=== PATIENT | female | born 1940 | race Caucasian/White ===

== ENCOUNTER 2017-10-26 10:30 | Emergency (ER) | payer MEDICARE, OTHER ==
[~2017-10-26] VITALS: Ht 162.6 cm; Wt 108.0 kg
[~2017-10-26 10:30] MED LIST: ALBU.083IS IH; ALBU90OI INH; ALPR.25 PO; ALPR1 PO; AMLO10 PO; ATOR40TA PO; Antivert25 MG PO; C-PAP; CEPH500 PO; CITA20 PO; CLON1 PO; FURO40 PO; HYDACE5 PO; HYDHCL25 PO; IBUP800 PO; LISI20 PO; LORA1 PO; MECL25 PO; METF500; METPRE4DP PO; Norco 5-325 Ta1 EACH PO; POTCHL10ER PO; Prednisone20 MG PO; Robaxin-750750 MG PO; SPACER IH; TIOT18 IH
[2017-10-26] MEDS ORDERED: ALBU2.5V5 NEB (13:25)
== END 2017-10-26 14:28 | disposition home or self-care (01) ==
LOC: ER 10:30
DX: J44.9 Chronic obstructive pulmonary disease, unspecified (principal); I10 Essential (primary) hypertension; K21.9 Gastro-esophageal reflux disease without esophagitis; F41.9 Anxiety disorder, unspecified; F17.210 Nicotine dependence, cigarettes, uncomplicated; Z88.8 Allergy status to other drugs, medicaments and biological substances; Z88.2 Allergy status to sulfonamides; Z79.899 Other long term (current) drug therapy
CPT/HCPCS: 99283

== ENCOUNTER 2017-11-27 06:39 | Emergency (ER) | payer MEDICARE, OTHER ==
[~2017-11-27] VITALS: Ht 162.6 cm; Wt 104.3 kg
[~2017-11-27 06:39] MED LIST changes: +ALBU2.5V5 NEB
[2017-11-27] MEDS ORDERED: ASPI81CH (07:06)
[2017-11-27] MEDS ORDERED: ESCI5 (07:06)
[2017-11-27] MEDS ORDERED: MAGOXI400 (07:06)
[2017-11-27] MEDS ORDERED: Norco 5-325 Ta1 EACH PO (07:11)
[2017-11-27] MEDS ORDERED: METPRE4DP PO (07:11)
== END 2017-11-27 07:34 | disposition home or self-care (01) ==
LOC: ER 06:39
DX: R07.89 Other chest pain (principal); M54.41 Lumbago with sciatica, right side; E66.01 Morbid (severe) obesity due to excess calories; J44.9 Chronic obstructive pulmonary disease, unspecified; E11.9 Type 2 diabetes mellitus without complications; I10 Essential (primary) hypertension; K21.9 Gastro-esophageal reflux disease without esophagitis; F41.9 Anxiety disorder, unspecified; F17.210 Nicotine dependence, cigarettes, uncomplicated; Z88.8 Allergy status to other drugs, medicaments and biological substances; Z88.2 Allergy status to sulfonamides; Z79.899 Other long term (current) drug therapy; Z68.39 Body mass index [BMI] 39.0-39.9, adult
CPT/HCPCS: 96372; 99284; J1100; J2550; J3010

== ENCOUNTER 2018-12-05 13:34 | Day surgery (SDC) | payer MEDICARE, OTHER ==
[~2018-12-05] VITALS: Ht 162.6 cm; Wt 106.3 kg
[~2018-12-05 13:34] MED LIST changes: +ALBU90OI61 INH; +ASCO500 PO; +ASPI325EC PO; +ASPI81CH; +Amlodipine Bes2.5 MG PO; +Calcitriol0.25 MCG PO; +EDARBI40 MG PO; +ESCI20 PO; +ESCI5; +GABA100 PO; +MAGNESIUM250 MG PO; +MAGOXI400; +METF500C PO; +NIAC500 PO; +OMEG1CAP30 PO; +TOCO1000 PO; +VITAMIN B-121000 MCG PO; +Vitamin D2000 UNIT PO
[2018-12-05] MEDS ORDERED: CYCL10 (13:56)
== END 2018-12-05 14:16 | disposition home or self-care (01) ==
LOC: ORSCSDS 13:34
PROVIDERS: Anesthesiology
PROC: 3E0R33Z Introduction of Anti-inflammatory into Spinal Canal, Percutaneous Approach (ICD-10-PCS; principal; 2018-12-05 14:45)
DX: M51.16 Intervertebral disc disorders with radiculopathy, lumbar region (principal); M48.061 Spinal stenosis, lumbar region without neurogenic claudication; I10 Essential (primary) hypertension; E11.9 Type 2 diabetes mellitus without complications; E78.00 Pure hypercholesterolemia, unspecified; F41.8 Other specified anxiety disorders; E66.01 Morbid (severe) obesity due to excess calories; Z68.41 Body mass index [BMI] 40.0-44.9, adult
CPT/HCPCS: J1040

== ENCOUNTER 2018-12-30 19:55 | Inpatient (IN) | payer MEDICARE, OTHER ==
[~2018-12-30] VITALS: Ht 162.6 cm; Wt 104.0 kg
[~2018-12-30 19:55] MED LIST changes: +ALPR.5 PO; -ASPI325EC PO; +Aspirin EC81 MG PO; +CYAN500 PO; +CYCL10; -OMEG1CAP30 PO; -VITAMIN B-121000 MCG PO
[2018-12-30 20:44] LABS: BASOPHILS ABSOLUTE AUTO 0.06 K/mm3 (0.00-0.23); BASOPHILS PERCENT AUTO 1 % (0-2); EOSINOPHILS ABSOLUTE AUTO 0.11 K/mm3 (0.00-0.68); EOSINOPHILS PERCENT AUTO 1 % (0-6); Hematocrit 47.6 % (33.0-51.0); Hemoglobin 15.8 g/dL (11.5-16.0); IMMATURE GRAN ABSOLUTE AUTO 0.02 K/mm3 (0.00-0.10); IMMATURE GRAN PERCENT AUTO 0 % (0-1); LYMPHOCYTES ABSOLUTE AUTO 1.99 K/mm3 (0.84-5.20); LYMPHOCYTES PERCENT AUTO 18 % (21-46); MONOCYTES ABSOLUTE AUTO 0.94 K/mm3 (0.16-1.47); MONOCYTES PERCENT AUTO 9 % (4-13); Mean Corpuscular HGB 31.2 pg (26.0-34.0); Mean Corpuscular HGB Conc 33.2 g/dL (31.5-36.5); Mean Corpuscular Volume 94 fL (80-100); Mean Platelet Volume 10.4 fL (9.1-12.4); NEUTROPHILS ABSOLUTE AUTO 7.76 K/mm3 (1.96-9.15); NEUTROPHILS PERCENT AUTO 71 % (41-73); Platelet Count 364 K/mm3 (150-400); RDW Coefficient Variation 13.3 % (11.7-14.2); RDW Standard Deviation 46.4 fL (35.1-46.3); Red Blood Cell Count 5.06 M/mm3 (3.80-5.20); White Blood Cell Count 10.88 K/mm3 (4.00-11.30)
[2018-12-30 21:02] LABS: Albumin, Blood 3.6 g/dL (3.4-5.0); Albumin/Globulin Ratio 0.9 (0.8-1.8); Bilirubin, Total 0.4 mg/dL (0.1-1.0); Bun/Creatinine Ratio 14.3 (12.0-20.0); Calcium, Blood 10.2 mg/dL (8.5-10.1); Creatinine, Blood 1.19 mg/dL (0.40-1.00); Globulin, Blood 3.9 g/dL (2.2-4.0); Potassium, Blood 3.7 mmol/L (3.5-5.5); Total Protein, Blood 7.5 g/dL (6.4-8.2)
[2018-12-30 21:13] LABS: Troponin I 0.351 ng/mL (0.000-0.040)
[2018-12-30 21:15] LABS: Thyroid Stimulating Hormone 1.89 uIU/mL (0.360-4.800)
[2018-12-30] MEDS ORDERED: MEGARED OMEGA-1 EAC1 PO (22:11)
--- NOTE | 2018-12-31 00:54 | NUR ---
DPOA WILIAMSAMI GARCIA IS DPOA, WILL BRING PAPERWORK FROM HOME. PATIENT CANNOT MAKE DECISIONS OR REMEMBER ANY INSTRUCTIONS, TEACHINGS OR CONVERSATIONS PER PATIENT AND PATIENTS GRNADSON. ALL INFORMATION ON PATIENT FROM MD NEEDS TO BE GIVEN TO THE GRANDSON, PLEASE CALL HIM WITH ANY INFORMATION OR EDUCATION FOR PATIENT. PATIENTS DAUGHTER CANNOT HAVE ANY PERSONAL INFORMATION, ONLY GENERAL INFORMATION PER DPOA AND PATIENT, DUE TO DAUGHTERS MENTAL INSTABILITY
[2018-12-31 02:14] LABS: Source, Urine Clean Catch
[2018-12-31 02:16] LABS: Bilirubin, Urine Neg (Neg); Blood, Urine Neg (Neg); Glucose Qualitative, Urine Neg (Neg); Ketones, Urine Neg (Neg); Leukocyte Esterase, Urine Neg (Neg); Nitrite, Urine Neg (Neg); Protein, Urine Neg (Neg); Urobilinogen, Urine NORM (Normal)
[2018-12-31 02:21] LABS: Appearance, Urine Clear (Clear); Color, Urine Yellow (P-Yellow)
[2018-12-31 05:20] LABS: Hematocrit 45.7 % (33.0-51.0); Hemoglobin 15.3 g/dL (11.5-16.0); Mean Corpuscular HGB 31.4 pg (26.0-34.0); Mean Corpuscular HGB Conc 33.5 g/dL (31.5-36.5); Mean Corpuscular Volume 94 fL (80-100); Mean Platelet Volume 10.6 fL (9.1-12.4); Platelet Count 300 K/mm3 (150-400); RDW Coefficient Variation 13.2 % (11.7-14.2); RDW Standard Deviation 45.5 fL (35.1-46.3); Red Blood Cell Count 4.87 M/mm3 (3.80-5.20); White Blood Cell Count 10.51 K/mm3 (4.00-11.30)
--- NOTE | 2018-12-31 05:31 | NUR ---
SHIFT SUMMARY PATIENT WAS ADMITTED IN PCU AT 2307 VIA GURNEY, PATIENT TRANSFER FROM GURNEY TO BED, ALERT AND ORIENTED X 3, CAN FOLLOW DIRECTION BUT FORGET INSTRUCTION AT TIMES. AFIB AT 115, DENIES PAIN AT THIS TIME. BED LOCK, IN LOW POSITION, AND CALL LIGHT WITHIN REACH. SEE [facility] FOR FULL ADMISSION ASSESSMENT.
[2018-12-31 05:34] LABS: International Normalized Ratio 1.04
[2018-12-31 05:55] LABS: Alanine Aminotransfer (ALT/SGP 25 U/L (12-78); Albumin, Blood 3.3 g/dL (3.4-5.0); Albumin/Globulin Ratio 0.9 (0.8-1.8); Alk Phos 94 U/L (50-136); Anion Gap 9 mmol/L (6-16); Aspartate Aminotrans (AST/SGOT 13 U/L (12-37); Bilirubin, Total 0.5 mg/dL (0.1-1.0); Blood Urea Nitrogen 17 mg/dL (8-24); Bun/Creatinine Ratio 18.4 (12.0-20.0); CO2, Blood 25 mmol/L (21-32); Chloride, Blood 104 mmol/L (98-108); Creatinine, Blood 0.93 mg/dL (0.40-1.00); Globulin, Blood 3.5 g/dL (2.2-4.0); Glomerular Filtration Rate >60 (60-); Glucose, Blood 126 mg/dL (70-99); Potassium, Blood 3.7 mmol/L (3.5-5.5); Sodium, Blood 138 mmol/L (136-145); Total Protein, Blood 6.8 g/dL (6.4-8.2)
[2018-12-31 05:57] LABS: Magnesium, Blood 1.5 mg/dL (1.6-2.4); Troponin I 0.404 ng/mL (0.000-0.040)
--- NOTE | 2018-12-31 11:48 | NUR ---
echocardiogram completed
--- NOTE | 2018-12-31 13:00 | NUR ---
CHANGES TO MEDICATIONS AND PLAN OF CARE Family memeberPavan, brought in paperwork stating he is DPOA. He stated discontent that lasix had been added to the pt's medication regimen and that he had not been notified. Pavan also brought in an incomplete POLST for this pt. This RN was at pt's bedside when Dr Gonzalez rounded on the patient. Pt stated she understood the plan of care. She did not request for provider or this RN to call Pavan and give an update. This RN educated Pavan on DPOA meaning he is the decision maker when the patient cannot make her own decisions. On assessment, the patient is A&O x 3 but can be forgetful at times. This RN also educated that pt has autonomy to make her own decisions. Pavan stated he would like to be included in the patient's plan of care because the patient has difficulty understanding what is being discussed. Pavan's plan is to remain at the patient's bedside. Pt verbalizes approval of this plan. Family and patient educated on changes to medications until pt and family verbalized satisfaction.
[2018-12-31 13:22] LABS: Troponin I 0.45 ng/mL (0.000-0.040)
--- NOTE | 2018-12-31 18:17 | NUR ---
CARDIOLOGY CONSULT Dr Gonzalez ordered cardiology consult. This RN spoke to Dr Ribera to notify him of the consult. Provider stated he would not accept the consult at this time, but Dr Gonzalez may reconsult the provider personally. This RN provided update to Dr Gonzalez. Pt has remained on 5 mg/hr of cardizem. HR is averaging between 95 and 105.
--- NOTE | 2018-12-31 18:21 | NUR ---
SHIFT SUMMARY: ASSUMED CARE OF PT AT 0700, RECIEVED REPORT FROM PREM MONTELONGO. UPON ENTERING ROOM PT WAS A/O TO SELF, FAMILY AND SURROUNDINGS. PT CAN BECOME CONFUSED AT TIMES ACCORDING TO POA. WHEN ASSESSING PT, SHE DENIED ANY CHEST PAIN, DYSPNEA, DIZZINESS OR LIGHTHEADEDNESS. DURING THE DAY PT'S HR HAS BEEN IN THE 110'S, HOWEVER, AFTER ADDING ADDITIONAL BP MEDS, HR HAS SHOULD IMPROVMENT WITH HR IN THE 90'S. PT HAS CONTINOUSLY T/O SHIFT DENIED CHEST PAIN OR PALPATATIONS. PT HAS BEEN ENCOURAGED TO USE CALL LIGHT AND ASK FOR ASSISTANCE TO THE RESTROOM DUE TO HR ELEVATING WITH AMBULATION. PT IS STEADY ON HER FEET AND HAS BEEN CALLING APPRORIATLY. PT POA WAS CONCERNED ABOUT THE PT RECIVING LASIX AND WAS WORRIED IT WOULD PUT THE PT INTO RENAL FAILURE. POA WAS EDUCATED BY ANGELINA MONTELONGO, AND SHE ADRESSED HIS CONCERNS AND QUESTIONS. POA WAS ENCOURAGED TO STAY WITH THE PATIENT DURING THE STAY BECAUSE HE WANTS TO BE INFORMED OF ANY CHANGES, INCLUDING MEDICATIONS.PIPE BOWL PAINT TRIMMER HAS BEEN CONSULTED, AND FAMILY HAS REQUESTED TO BE PRESENT. BED IS AT LOWEST LEVEL, CALL LIGHT WITHIN REACH. WILL CONTINUE TO MONITOR PT UNTIL REPORT IS GIVEN TO ONCOMING SHIFT.
--- NOTE | 2018-12-31 19:44 | NUR ---
BEDSIDE REPORT Lexiscan ordered for patient. During bedside report, pt had a large number of visitors in her room. This RN told the patient that there was an update in her plan of care and asked the patient if it was okay for this RN to provide the update while all the visitors were in the room. The patient stated "Of course that's okay!". This RN updated pt, Pavan, and visitors regarding cardiology consultation and lexiscan to be done tomorrow.
--- NOTE | 2018-12-31 22:26 | NUR ---
Assumed care of pt at approx 1900. Pt currently infusing diltiazem at 5ml/hr. Rate verified with JAYDA Pandya. New bag infusing at approx 2200 and rate verified with JAYDA Gonzales. Pt tolerating with VSS. Pt in A-fib with rate between 90-110's. Pt in no apparent sign of distress. Awake and alert. Oriented but forgetful. Pt states she gets confused easily. GrandsonPavan, is pt. POA and is at bedside. Pavan states that he will remain at bedside through night and would like to be aware of any and all changes to plan of care and/or medication changes. Pt ambulates with SBA to FWW to bathroom, though steady on her feet without walker. Educated pt and family on fall risk prevention and asked to have her use walker when ambulating. Pt makes needs known, calls appropriately, and call light is currently within reach. Pt resting comfortably at this time. Will continue to monitor and update. See shift assessment for detailed assessment
[2019-01-01 04:10] LABS: BASOPHILS ABSOLUTE AUTO 0.05 K/mm3 (0.00-0.23); BASOPHILS PERCENT AUTO 1 % (0-2); EOSINOPHILS ABSOLUTE AUTO 0.17 K/mm3 (0.00-0.68); EOSINOPHILS PERCENT AUTO 2 % (0-6); Hematocrit 43.2 % (33.0-51.0); Hemoglobin 14.5 g/dL (11.5-16.0); IMMATURE GRAN ABSOLUTE AUTO 0.02 K/mm3 (0.00-0.10); IMMATURE GRAN PERCENT AUTO 0 % (0-1); LYMPHOCYTES PERCENT AUTO 30 % (21-46); MONOCYTES ABSOLUTE AUTO 1.01 K/mm3 (0.16-1.47); MONOCYTES PERCENT AUTO 12 % (4-13); Mean Corpuscular HGB 30.8 pg (26.0-34.0); Mean Corpuscular HGB Conc 33.6 g/dL (31.5-36.5); Mean Corpuscular Volume 92 fL (80-100); Mean Platelet Volume 10.4 fL (9.1-12.4); NEUTROPHILS ABSOLUTE AUTO 4.68 K/mm3 (1.96-9.15); NEUTROPHILS PERCENT AUTO 56 % (41-73); Platelet Count 319 K/mm3 (150-400); RDW Coefficient Variation 13.3 % (11.7-14.2); RDW Standard Deviation 45.1 fL (35.1-46.3); Red Blood Cell Count 4.71 M/mm3 (3.80-5.20); White Blood Cell Count 8.43 K/mm3 (4.00-11.30)
[2019-01-01 04:23] LABS: International Normalized Ratio 1.26; Prothrombin Time Results 13.1 Sec (9.7-11.5)
[2019-01-01 04:28] LABS: Bun/Creatinine Ratio 21.1 (12.0-20.0); Calcium, Blood 10.3 mg/dL (8.5-10.1); Magnesium, Blood 1.5 mg/dL (1.6-2.4); Potassium, Blood 3.7 mmol/L (3.5-5.5)
--- NOTE | 2019-01-01 05:31 | NUR ---
Shift Summary No acute changes this shift. VSS. No apparent sign of distress. Pt tolerating 5mL/hr Diltiazem with HR trending in 90-100's. Pt with Pavan sutton who is DPOA, at bedside. Pavan is involved in the care of pt. Pavan brought to this RN's attention concern regarding Xanex order. Pavan states that he told "many doctors and nurses who work here" that pt. needs to take home medication, Xanex, two times a day. The order is currently in the eMAR as PRN. This RN did not initially give Xanex because pt appeared calm and did not request the PRN Xanex. At approx 0300, pt states "I don't think you gave me my xanex". This RN explained how PRN medications work. Pavan expressed frustration to this RN regarding medication not given to pt. Xanex given per pt request at approx 0315 and pt has been resting comfortably since. This RN plans to pass along request to change Xanex from PRN medication to scheduled medication to day shift RN. Pt remains alert and oriented. Pt becomes forgetful and confused at times. Pt does make needs known and uses call light appropriately. Bed is currently in locked, lowest position. Will continue to monitor until report is given to day RN.
--- NOTE | 2019-01-01 18:39 | NUR ---
SHIFT SUMMARY: ASSUMED CARE OF PT AT 0700, RECEVIED REPORT FROM MANDY MONTELONGO. PT REMAINS IN A-FIB AND HAS COME OFF THE IV CARDIZEM INFUSION. PO BP MEDICATIONS HAVE BEEN EFFECTIVE AND PULSE HAS REMAINED IN THE RANGE OF 85-95. HOWEVER, PT'S PULSE INCREASED TO THE 150'S WHEN SHE AMBULATED TO THE RESTROOM. UPON ENTERING THE RESTROOM TO ASSIT PT, SHE WAS FOUND STRUGGLING TO PUT HER UNDERPANTS ON AND APPERED TO BE SOB. PT DENIED ANY CHEST PAIN OR PALPATAIONS DURING THIS EVENT AND T/O ENTIRE SHIFT. PT WAS EDUCATED TO ASK FOR ASSISTANCE WHEN USING RESTROOM AND ALSO IN WAYS TO CONSERVE ENERGY. PT STATED THAT SHE UNDERSTOOD. PT HAS BEEN PLACED MEDICAL STATUS AND ROOM ASSIGNMENT IS PENDING. WILL CONTINUE TO MONIOR UNTIL REPORT IS GIVEN TO NEXT SHIFT. CALL LIGHT IS WITHIN REACH.
--- NOTE | 2019-01-02 01:24 | NUR ---
Assumed care of pt at approx 1900. VSS. pt in no sign of distress, no complaints this eveing. Pt requesting Xanex and Xanex given per order. Pt alert and oriented, confused and forgetful at times, grandson at bedside. Pt's current mentation is consistant with baseline per grandson. HR maintaining between 85-95 per development technician, normotensive, normothermic. No comlaint of chest pain or chest pressure. No events on tele. Pt denies pain of any kind at this time. Pt completed resting portion of stress test on 01/01 and scheduled to complete second portion today, 01/02. See shift assessment for detailed assessment. Pt without complaints or concerns at this time. Report given to JAYDA Rod who will take over care on medical floor. Pt is going to room 358.
--- NOTE | 2019-01-02 02:00 | NUR ---
Pt transferred via bed to room 358 with PJ and JAYDA Gonzales at approx 0150 . Pt in no apparent sign of distress, sleeping comfortably during transfer. All belongings taken with pt to room 358. Pavan Barrett, updated on transfer and with pt during transfer.
--- NOTE | 2019-01-02 02:06 | NUR ---
PT ARRIVES TO MEDICAL UNIT VIA STRETCHER. PT IS ASLEEP, DOES NOT WAKE DURING TRANSFER OR DURING ASSESSMENT/VITAL SIGN. DELIVERING RN STATES PT NO LONGER NEEDS GI PANEL HAS NOT HAD BM OR DIAHRRHEA X 4 DAYS BEFORE ARRIVAL TO HOSPITAL. DATA CONVERSION DEVELOPER ALSO STATES NPO AFTER BREAKFAST. DECEMBER [facility] ADA BREAKFAST.
--- NOTE | 2019-01-02 03:18 | NUR ---
THIS RN AGREES WITH PRIOR HIGHWAY RESEARCH ENGINEER ASSESSMENTS AND DOCUMENTATION.
--- NOTE | 2019-01-02 05:00 | NUR ---
SHIFT SUMMARY: PT TRANSFER FROM PCU AROUND 0200. PT ADMITTED FOR AFIB c RVR, THAT IS NOW BEING CONTROLLED c PO CARDIZEM AND METOPROLOL. TELE IN PLACE; A FIB @ 85-95. PT PLACED ON 2 L VIA NC TONIGHT PER POA'S (RADHA) REQUEST. PT IS A&O c ACUTE CONFUSION AND FORGETFULNESS THAT IS BASELINE. UP TO BR THIS AM, DENIES DIZZINESS OR SOB c EXERTION AT THAT TIME. PT WILL BE NPO AFTER BREAKFAST AND HAE 2ND PORTION OF STRESS TEST TODAY 01/02. PT AND FAMILY AWARE. NO OTHER CHANGES TO REPORT. WILL CONT TO MONITOR AND PROVIDE CARE UNTIL PRESUMED BY ONCOMING RN.
[2019-01-02 05:42] LABS: International Normalized Ratio 1.48; Prothrombin Time Results 15.1 Sec (9.7-11.5)
[2019-01-02 05:55] LABS: Bun/Creatinine Ratio 22.2 (12.0-20.0); Calcium, Blood 10.2 mg/dL (8.5-10.1); Creatinine, Blood 1.08 mg/dL (0.40-1.00); Potassium, Blood 3.6 mmol/L (3.5-5.5)
[2019-01-02] MEDS ORDERED: DILT60 PO (16:16)
[2019-01-02] MEDS ORDERED: HYDCHL12.5 PO (16:17)
[2019-01-02] MEDS ORDERED: METO25 PO (16:17)
[2019-01-02] MEDS ORDERED: Micro-K10 MEQ PO (16:17)
[2019-01-02] MEDS ORDERED: XARELTO20 MG PO (16:18)
--- NOTE | 2019-01-02 17:08 | NUR ---
DISCHARGE DISCHARGE INSTRUCTIONS, FOLLOW UP APPOINTMENTS AND MEDICATION LIST REVIEWED WITH PT AND HER SISTER. QUESTIONS/CONCERNS ANSWERED. BOTH PT AND SISTER VERBALLY INDICATED UNDERSTANDING OF ALL INSTRUCTIONS RECEIVED. TELE BOX REMOVED AND RETURNED TO PCU. WILL MONITOR UNTIL RIDE ARRIVES
--- NOTE | 2019-01-02 18:01 | NUR ---
PT ESCORTED OUT BY VIDEO MACHINES MECHANIC VIA W/C
== END 2019-01-02 17:58 | disposition home or self-care (01) | DRG 309 ==
LOC: ER 19:55 → ERHOLD 19:56 → PCU 23:07 → MEDS 01-02 01:53
PROVIDERS: Emergency Medicine; Family Medicine; Pharmacist; ADMIT Internal Medicine
DX: I48.91 Unspecified atrial fibrillation (principal); N17.9 Acute kidney failure, unspecified; Z68.41 Body mass index [BMI] 40.0-44.9, adult; K21.9 Gastro-esophageal reflux disease without esophagitis; F17.210 Nicotine dependence, cigarettes, uncomplicated; F41.9 Anxiety disorder, unspecified; J44.9 Chronic obstructive pulmonary disease, unspecified; I35.0 Nonrheumatic aortic (valve) stenosis; F41.0 Panic disorder [episodic paroxysmal anxiety]; E87.6 Hypokalemia; E78.5 Hyperlipidemia, unspecified; Z79.82 Long term (current) use of aspirin; E86.0 Dehydration; N18.3 Chronic kidney disease, stage 3 (moderate); I12.9 Hypertensive chronic kidney disease with stage 1 through stage 4 chronic kidney disease, or unspecified chronic kidney disease; G47.33 Obstructive sleep apnea (adult) (pediatric); E66.01 Morbid (severe) obesity due to excess calories; E11.22 Type 2 diabetes mellitus with diabetic chronic kidney disease; K52.9 Noninfective gastroenteritis and colitis, unspecified
CPT/HCPCS: 36415; 71045; 78452; 80048; 80053; 81003; 82550; 82947; 83735; 83880; 84443; 84484; 85025; 85027; 85610; 93005; 93010; 93017; 93306; 96372; 96374; 96375; 96376; 99285-25; A9500; G0378; J0280; J0706; J1650; J1940; J2785

== ENCOUNTER 2019-02-24 00:07 | Emergency (ER) | payer MEDICARE, OTHER ==
[~2019-02-24] VITALS: Ht 162.6 cm; Wt 104.3 kg
[~2019-02-24 00:07] MED LIST changes: +DILT60 PO; +HYDCHL12.5 PO; +MEGARED OMEGA-1 EAC1 PO; +METO25 PO; +Micro-K10 MEQ PO; +XARELTO20 MG PO
[2019-02-24 00:58] LABS: BASOPHILS ABSOLUTE AUTO 0.07 K/mm3 (0.00-0.23); BASOPHILS PERCENT AUTO 1 % (0-2); EOSINOPHILS ABSOLUTE AUTO 0.27 K/mm3 (0.00-0.68); EOSINOPHILS PERCENT AUTO 3 % (0-6); Hematocrit 42.4 % (33.0-51.0); Hemoglobin 14.1 g/dL (11.5-16.0); IMMATURE GRAN ABSOLUTE AUTO 0.02 K/mm3 (0.00-0.10); IMMATURE GRAN PERCENT AUTO 0 % (0-1); LYMPHOCYTES PERCENT AUTO 34 % (21-46); MONOCYTES ABSOLUTE AUTO 0.97 K/mm3 (0.16-1.47); MONOCYTES PERCENT AUTO 11 % (4-13); Mean Corpuscular HGB 32.3 pg (26.0-34.0); Mean Corpuscular HGB Conc 33.3 g/dL (31.5-36.5); Mean Corpuscular Volume 97 fL (80-100); Mean Platelet Volume 10.8 fL (9.1-12.4); NEUTROPHILS ABSOLUTE AUTO 4.76 K/mm3 (1.96-9.15); NEUTROPHILS PERCENT AUTO 52 % (41-73); Platelet Count 195 K/mm3 (150-400); RDW Coefficient Variation 13.8 % (11.7-14.2); RDW Standard Deviation 49.5 fL (35.1-46.3); Red Blood Cell Count 4.37 M/mm3 (3.80-5.20); White Blood Cell Count 9.19 K/mm3 (4.00-11.30)
[2019-02-24 01:13] LABS: Alanine Aminotransfer (ALT/SGP 24 U/L (12-78); Albumin, Blood 3.4 g/dL (3.4-5.0); Alk Phos 72 U/L (50-136); Anion Gap 7 mmol/L (6-16); Aspartate Aminotrans (AST/SGOT 16 U/L (12-37); Bilirubin, Total 0.3 mg/dL (0.1-1.0); Blood Urea Nitrogen 20 mg/dL (8-24); CO2, Blood 26 mmol/L (21-32); Calcium, Blood 9.6 mg/dL (8.5-10.1); Chloride, Blood 107 mmol/L (98-108); Globulin, Blood 3.3 g/dL (2.2-4.0); Glomerular Filtration Rate 57 (60-); Glucose, Blood 122 mg/dL (70-99); Potassium, Blood 3.7 mmol/L (3.5-5.5); Sodium, Blood 140 mmol/L (136-145); Total Protein, Blood 6.7 g/dL (6.4-8.2); Troponin I <0.015 ng/mL (0.000-0.040)
[2019-05-14] MEDS ORDERED: Abilify2 MG PR (13:41)
[2019-05-14] MEDS ORDERED: GABA100 PO (13:42)
[2019-05-14] MEDS ORDERED: ESCI20 PO (13:44)
[2019-05-14] MEDS ORDERED: ALBU2.5V5 INH (13:45)
[2019-05-14] MEDS ORDERED: CALC.25 PO (13:45)
[2019-05-14] MEDS ORDERED: ABILIFY MYCITE2 MG (13:46)
[2019-05-14] MEDS ORDERED: ALPR1 PO (13:47)
== END 2019-02-24 04:10 | disposition home or self-care (01) ==
LOC: ER 00:07
PROVIDERS: Emergency Medicine
DX: R07.9 Chest pain, unspecified (principal); I10 Essential (primary) hypertension; I48.91 Unspecified atrial fibrillation; F41.9 Anxiety disorder, unspecified; K21.9 Gastro-esophageal reflux disease without esophagitis; J44.9 Chronic obstructive pulmonary disease, unspecified; F17.210 Nicotine dependence, cigarettes, uncomplicated; Z88.2 Allergy status to sulfonamides; Z88.8 Allergy status to other drugs, medicaments and biological substances; Z79.82 Long term (current) use of aspirin; Z79.899 Other long term (current) drug therapy
CPT/HCPCS: 36415; 71046; 80053; 83690; 83880; 84484; 85025; 93005; 93010; 99285-25

== ENCOUNTER 2019-04-28 16:43 | Emergency (ER) | payer MEDICARE, OTHER ==
[~2019-04-28] VITALS: Ht 162.6 cm; Wt 106.6 kg
[2019-04-28 17:15] LABS: BASOPHILS ABSOLUTE AUTO 0.02 K/mm3 (0.00-0.23); BASOPHILS PERCENT AUTO 0 % (0-2); EOSINOPHILS PERCENT AUTO 0 % (0-6); Hematocrit 44.3 % (33.0-51.0); Hemoglobin 14.9 g/dL (11.5-16.0); IMMATURE GRAN ABSOLUTE AUTO 0.05 K/mm3 (0.00-0.10); IMMATURE GRAN PERCENT AUTO 0 % (0-1); LYMPHOCYTES ABSOLUTE AUTO 1.27 K/mm3 (0.84-5.20); LYMPHOCYTES PERCENT AUTO 9 % (21-46); MONOCYTES ABSOLUTE AUTO 1.06 K/mm3 (0.16-1.47); MONOCYTES PERCENT AUTO 8 % (4-13); Mean Corpuscular HGB 32.7 pg (26.0-34.0); Mean Corpuscular HGB Conc 33.6 g/dL (31.5-36.5); Mean Corpuscular Volume 97 fL (80-100); Mean Platelet Volume 10.6 fL (9.1-12.4); NEUTROPHILS ABSOLUTE AUTO 11.52 K/mm3 (1.96-9.15); NEUTROPHILS PERCENT AUTO 83 % (41-73); Platelet Count 206 K/mm3 (150-400); RDW Standard Deviation 46.3 fL (35.1-46.3); Red Blood Cell Count 4.55 M/mm3 (3.80-5.20); White Blood Cell Count 13.92 K/mm3 (4.00-11.30)
[2019-04-28 17:34] LABS: Alanine Aminotransfer (ALT/SGP 25 U/L (12-78); Albumin, Blood 3.5 g/dL (3.4-5.0); Albumin/Globulin Ratio 1.1 (0.8-1.8); Alk Phos 78 U/L (50-136); Anion Gap 6 mmol/L (6-16); Aspartate Aminotrans (AST/SGOT 12 U/L (12-37); Bilirubin, Total 0.2 mg/dL (0.1-1.0); Blood Urea Nitrogen 30 mg/dL (8-24); Bun/Creatinine Ratio 28.6 (12.0-20.0); CO2, Blood 25 mmol/L (21-32); Calcium, Blood 9.7 mg/dL (8.5-10.1); Chloride, Blood 106 mmol/L (98-108); Creatinine, Blood 1.05 mg/dL (0.40-1.00); Globulin, Blood 3.3 g/dL (2.2-4.0); Glomerular Filtration Rate 54 (60-); Glucose, Blood 204 mg/dL (70-99); Potassium, Blood 4.1 mmol/L (3.5-5.5); Sodium, Blood 137 mmol/L (136-145); Total Protein, Blood 6.8 g/dL (6.4-8.2); Troponin I <0.015 ng/mL (0.000-0.040)
[2019-04-28 18:33] LABS: Source, Urine Clean Catch
[2019-04-28 18:48] LABS: Appearance, Urine Clear (Clear); Bilirubin, Urine Neg (Neg); Blood, Urine Neg (Neg); Color, Urine Yellow (P-Yellow); Glucose Qualitative, Urine Neg (Neg); Ketones, Urine Neg (Neg); Leukocyte Esterase, Urine 1+ (Neg); Nitrite, Urine Neg (Neg); Protein, Urine Neg (Neg); Specific Gravity, Urine 1.015 (1.003-1.022); Urobilinogen, Urine NORM (Normal)
[2019-04-28 18:55] LABS: Bacteria Mod /hpf; Red Blood Cells, Urine 0-2 /hpf (0-2); Squamous Epithelial Cells Not Seen /hpf (Few)
[2019-05-14] MEDS ORDERED: Abilify2 MG PR (13:41)
[2019-05-14] MEDS ORDERED: GABA100 PO (13:42)
[2019-05-14] MEDS ORDERED: ESCI20 PO (13:44)
[2019-05-14] MEDS ORDERED: CALC.25 PO (13:45)
[2019-05-14] MEDS ORDERED: ALBU2.5V5 INH (13:45)
[2019-05-14] MEDS ORDERED: ABILIFY MYCITE2 MG (13:46)
[2019-05-14] MEDS ORDERED: ALPR1 PO (13:47)
== END 2019-04-28 19:37 | disposition home or self-care (01) ==
LOC: ER 16:43
PROVIDERS: Emergency Medicine
DX: R55 Syncope and collapse (principal); E83.42 Hypomagnesemia; I35.0 Nonrheumatic aortic (valve) stenosis; I10 Essential (primary) hypertension; Z88.2 Allergy status to sulfonamides; Z88.8 Allergy status to other drugs, medicaments and biological substances; Z79.899 Other long term (current) drug therapy; F41.0 Panic disorder [episodic paroxysmal anxiety]; J44.9 Chronic obstructive pulmonary disease, unspecified; E78.5 Hyperlipidemia, unspecified; K21.9 Gastro-esophageal reflux disease without esophagitis; F17.200 Nicotine dependence, unspecified, uncomplicated
CPT/HCPCS: 36415; 71046; 80053; 81001; 83735; 84484; 85025; 87086; 93005; 93010; 99284-25

== ENCOUNTER 2019-05-15 06:16 | Day surgery (SDC) | payer MEDICARE, OTHER ==
[~2019-05-15] VITALS: Ht 162.6 cm; Wt 109.0 kg
[~2019-05-15 06:16] MED LIST changes: +ABILIFY MYCITE2 MG; +ALBU2.5V5 INH; +Abilify2 MG PR; +CALC.25 PO
--- NOTE | 2019-05-15 06:59 | NUR ---
CURRENT EKG DR. RIVERS STATES EKG IS GOOD ENOUGHT-"DUE TO LAST EKG BEING NORMAL".
--- NOTE | 2019-05-15 07:56 | NUR ---
PT RETURNED TO RECOVERY ROOM IN RECLINER. RIGHT RADIAL TR BAND SITE SOFT NON-TENDER WITH NO HEMATOMA AND NO PUSLATILE BLEEDING; WRIST BOARD IN PLACE. CALL LIGHT IN REACH. PT'S SON IN ROOM.
--- NOTE | 2019-05-15 09:52 | NUR ---
9 CC OF AIR REMOVED OVER 12 MIN OUT OF NOW DEFLATED RIGHT TR BAND; NO HEMATOMA, NO PULSATILE BLEEDING. DISCHARGE INSTRUCTIONS REVIEWED AND ALL QUESTIONS ANSWERED.
--- NOTE | 2019-05-15 10:47 | NUR ---
DEFLATED RIGHT TR BAND REMOVED AND POLYMEM PLACED OVER RIGHT RADIAL SITE; RIGHT WRIST BOARD IN PLACE. 20 G IV DISCONTINUED FROM LEFT FOREARM WITH INTACT CANNULA. RIGHT ARM SLING PLACED. NO CHANGES TO RIGHT RADIAL SITE. PT ESCORTED OUT VIA WHEELCHAIR ESCORT.
== END 2019-05-15 10:50 | disposition home or self-care (01) ==
LOC: MHTC 06:16
DX: Z01.810 Encounter for preprocedural cardiovascular examination (principal); I35.0 Nonrheumatic aortic (valve) stenosis; I25.10 Atherosclerotic heart disease of native coronary artery without angina pectoris; R55 Syncope and collapse; E78.5 Hyperlipidemia, unspecified; G47.33 Obstructive sleep apnea (adult) (pediatric); I12.9 Hypertensive chronic kidney disease with stage 1 through stage 4 chronic kidney disease, or unspecified chronic kidney disease; E11.22 Type 2 diabetes mellitus with diabetic chronic kidney disease; N18.9 Chronic kidney disease, unspecified; F17.210 Nicotine dependence, cigarettes, uncomplicated; Z88.2 Allergy status to sulfonamides; Z88.8 Allergy status to other drugs, medicaments and biological substances
CPT/HCPCS: 82947; 93458; 99152; C1769; C1894; J0690; J1644; J2250; J3010; J7030; Q9967

== ENCOUNTER → 2019-10-12 | Outpatient (CLI) | payer MEDICARE, OTHER ==
[2019-10-12 18:20] LABS: BASOPHILS ABSOLUTE AUTO 0.06 K/mm3 (0.00-0.23); BASOPHILS PERCENT AUTO 1 % (0-2); EOSINOPHILS ABSOLUTE AUTO 0.22 K/mm3 (0.00-0.68); EOSINOPHILS PERCENT AUTO 3 % (0-6); Hematocrit 47.6 % (33.0-51.0); Hemoglobin 15.8 g/dL (11.5-16.0); IMMATURE GRAN ABSOLUTE AUTO 0.02 K/mm3 (0.00-0.10); IMMATURE GRAN PERCENT AUTO 0 % (0-1); LYMPHOCYTES PERCENT AUTO 27 % (21-46); MONOCYTES ABSOLUTE AUTO 1.07 K/mm3 (0.16-1.47); MONOCYTES PERCENT AUTO 13 % (4-13); Mean Corpuscular HGB 31.3 pg (26.0-34.0); Mean Corpuscular HGB Conc 33.2 g/dL (31.5-36.5); Mean Corpuscular Volume 94 fL (80-100); Mean Platelet Volume 11.6 fL (9.1-12.4); NEUTROPHILS ABSOLUTE AUTO 4.57 K/mm3 (1.96-9.15); NEUTROPHILS PERCENT AUTO 56 % (41-73); Platelet Count 165 K/mm3 (150-400); RDW Coefficient Variation 13.2 % (11.7-14.2); RDW Standard Deviation 46.4 fL (35.1-46.3); Red Blood Cell Count 5.04 M/mm3 (3.80-5.20); White Blood Cell Count 8.14 K/mm3 (4.00-11.30)
[2019-10-12 18:35] LABS: Bun/Creatinine Ratio 19.5 (12.0-20.0); Calcium, Blood 10.9 mg/dL (8.5-10.1); Potassium, Blood 4.5 mmol/L (3.5-5.5); Thyroid Stimulating Hormone 1.84 uIU/mL (0.360-4.800)
== END | disposition home or self-care (01) ==
LOC: LAB SHORT 18:11 → LAB EV 18:11
PROVIDERS: Family Medicine
DX: R53.83 Other fatigue (principal)
CPT/HCPCS: 80048; 84443; 85025

== ENCOUNTER 2020-01-25 21:32 | Emergency (ER) | payer MEDICARE, OTHER ==
[~2020-01-25] VITALS: Ht 162.6 cm; Wt 99.8 kg
[2020-01-25 22:05] LABS: BASOPHILS ABSOLUTE AUTO 0.06 K/mm3 (0.00-0.23); BASOPHILS PERCENT AUTO 1 % (0-2); EOSINOPHILS ABSOLUTE AUTO 0.33 K/mm3 (0.00-0.68); EOSINOPHILS PERCENT AUTO 3 % (0-6); Hematocrit 45.3 % (33.0-51.0); Hemoglobin 14.7 g/dL (11.5-16.0); IMMATURE GRAN ABSOLUTE AUTO 0.03 K/mm3 (0.00-0.10); IMMATURE GRAN PERCENT AUTO 0 % (0-1); LYMPHOCYTES ABSOLUTE AUTO 3.05 K/mm3 (0.84-5.20); LYMPHOCYTES PERCENT AUTO 30 % (21-46); MONOCYTES ABSOLUTE AUTO 1.12 K/mm3 (0.16-1.47); MONOCYTES PERCENT AUTO 11 % (4-13); Mean Corpuscular HGB 31.5 pg (26.0-34.0); Mean Corpuscular HGB Conc 32.5 g/dL (31.5-36.5); Mean Corpuscular Volume 97 fL (80-100); Mean Platelet Volume 10.4 fL (9.1-12.4); NEUTROPHILS ABSOLUTE AUTO 5.51 K/mm3 (1.96-9.15); NEUTROPHILS PERCENT AUTO 55 % (41-73); Platelet Count 176 K/mm3 (150-400); RDW Coefficient Variation 13.9 % (11.7-14.2); RDW Standard Deviation 50.4 fL (35.1-46.3); Red Blood Cell Count 4.66 M/mm3 (3.80-5.20)
[2020-01-25 22:25] LABS: Albumin, Blood 3.4 g/dL (3.4-5.0); Bilirubin, Total 0.5 mg/dL (0.1-1.0); Bun/Creatinine Ratio 17.5 (12.0-20.0); Calcium, Blood 9.6 mg/dL (8.5-10.1); Creatinine, Blood 1.26 mg/dL (0.40-1.00); Globulin, Blood 3.4 g/dL (2.2-4.0); Potassium, Blood 3.7 mmol/L (3.5-5.5); Total Protein, Blood 6.8 g/dL (6.4-8.2)
[2020-01-25] MEDS ORDERED: Motion Sickness25 M1 PO (23:36)
== END 2020-01-25 23:55 | disposition home or self-care (01) ==
LOC: ER 21:32
PROVIDERS: Emergency Medicine
DX: R42 Dizziness and giddiness (principal); I48.20 Chronic atrial fibrillation, unspecified; I10 Essential (primary) hypertension; K21.9 Gastro-esophageal reflux disease without esophagitis; F41.0 Panic disorder [episodic paroxysmal anxiety]; J44.9 Chronic obstructive pulmonary disease, unspecified; Z88.2 Allergy status to sulfonamides; Z88.8 Allergy status to other drugs, medicaments and biological substances; Z79.899 Other long term (current) drug therapy; F17.200 Nicotine dependence, unspecified, uncomplicated
CPT/HCPCS: 36415; 70450; 71045; 80053; 85025; 93005; 93010; 99285-25

== ENCOUNTER 2020-08-30 00:20 | Emergency (ER) | payer MEDICARE, OTHER ==
[~2020-08-30] VITALS: Ht 162.6 cm; Wt 105.7 kg
[~2020-08-30 00:20] MED LIST changes: +FURO80 PO; +Klor-Con 1010 MEQ PO; +Motion Sickness25 M1 PO
[2020-08-30 00:38] LABS: BASOPHILS ABSOLUTE AUTO 0.08 K/mm3 (0.00-0.23); BASOPHILS PERCENT AUTO 1 % (0-2); EOSINOPHILS ABSOLUTE AUTO 0.26 K/mm3 (0.00-0.68); EOSINOPHILS PERCENT AUTO 2 % (0-6); Hematocrit 43.6 % (33.0-51.0); Hemoglobin 14.2 g/dL (11.5-16.0); IMMATURE GRAN ABSOLUTE AUTO 0.05 K/mm3 (0.00-0.10); IMMATURE GRAN PERCENT AUTO 0 % (0-1); LYMPHOCYTES ABSOLUTE AUTO 2.31 K/mm3 (0.84-5.20); LYMPHOCYTES PERCENT AUTO 20 % (21-46); MONOCYTES PERCENT AUTO 9 % (4-13); Mean Corpuscular HGB 29.9 pg (26.0-34.0); Mean Corpuscular HGB Conc 32.6 g/dL (31.5-36.5); Mean Corpuscular Volume 92 fL (80-100); Mean Platelet Volume 10.7 fL (9.1-12.4); NEUTROPHILS ABSOLUTE AUTO 8.01 K/mm3 (1.96-9.15); NEUTROPHILS PERCENT AUTO 69 % (41-73); Platelet Count 181 K/mm3 (150-400); RDW Coefficient Variation 13.1 % (11.7-14.2); RDW Standard Deviation 44.5 fL (35.1-46.3); Red Blood Cell Count 4.75 M/mm3 (3.80-5.20); White Blood Cell Count 11.71 K/mm3 (4.00-11.30)
[2020-08-30 00:51] LABS: Source, Urine Catheter
[2020-08-30 00:53] LABS: Bun/Creatinine Ratio 12.2 (12.0-20.0); Calcium, Blood 9.5 mg/dL (8.5-10.1); Creatinine, Blood 0.98 mg/dL (0.40-1.00); Potassium, Blood 3.5 mmol/L (3.5-5.5)
[2020-08-30 00:54] LABS: Bilirubin, Urine Neg (Neg); Blood, Urine 3+ (Neg); Glucose Qualitative, Urine Neg (Neg); Ketones, Urine Neg (Neg); Leukocyte Esterase, Urine Neg (Neg); Nitrite, Urine Neg (Neg); Protein, Urine 2+ (Neg); Specific Gravity, Urine 1.015 (1.003-1.022); Urobilinogen, Urine NORM (Normal)
[2020-08-30 00:55] LABS: Appearance, Urine Clear (Clear); Color, Urine Yellow (P-Yellow)
[2020-08-30 01:00] LABS: Bacteria Mod /hpf; Squamous Epithelial Cells Few /hpf (Few); White Blood Cells, Urine 0-2 /hpf (0-5)
== END 2020-08-30 01:52 | disposition home or self-care (01) ==
LOC: ER 00:20
PROVIDERS: Emergency Medicine
DX: R53.1 Weakness (principal); M25.562 Pain in left knee; M25.561 Pain in right knee; K21.9 Gastro-esophageal reflux disease without esophagitis; J44.9 Chronic obstructive pulmonary disease, unspecified; I48.91 Unspecified atrial fibrillation; I12.9 Hypertensive chronic kidney disease with stage 1 through stage 4 chronic kidney disease, or unspecified chronic kidney disease; N18.30 Chronic kidney disease, stage 3 unspecified; Z79.01 Long term (current) use of anticoagulants; Z79.899 Other long term (current) drug therapy; Z88.2 Allergy status to sulfonamides; Z88.8 Allergy status to other drugs, medicaments and biological substances; W18.30XA Fall on same level, unspecified, initial encounter
CPT/HCPCS: 51701; 80048; 81001; 85025; 93005; 93010; 99285-25